=== PATIENT | male | born 1950 | race Caucasian/White ===

== ENCOUNTER 2016-12-02 07:05 | Outpatient (CLI) | payer BC, MEDICARE ==
--- NOTE | 2016-12-02 09:35 | ULT ---
ULTRASOUND RETROPERITONEUM LIMTED: (ABDOMINAL AORTA) HISTORY: 66-year-old male for abdominal aortic aneurysm screening examination. FINDINGS: The caliber of the entire abdominal aorta is normal. IMPRESSION: No abdominal aortic aneurysm. lyn POS: [email or web address]
== END 2016-12-02 07:06 | disposition home or self-care (01) ==
LOC: NAV ULT 07:05
PROVIDERS: ATTEND Family Medicine
DX: Z13.6 Encounter for screening for cardiovascular disorders (principal)
CPT/HCPCS: 76775

== ENCOUNTER 2020-01-08 15:16 | Emergency (ER) | payer BC, MEDICARE ==
[2020-01-08] MEDS ORDERED: Acetaminophen 500 MG TAB ONE (15:57)
--- NOTE | 2020-01-08 17:36 | RAD ---
PA AND LATERAL CHEST: 01/08/20 INDICATION: Cough. COMPARISON: None. FINDINGS: No air space consolidation is evident. Heart size is normal. No pleural effusion is evident. No acute osseous abnormality is evident. There is surgical suture line seen involving the anterior abdominal wall on the lateral projection. No acute osseous abnormality is evident. IMPRESSION: No acute abnormality. POS: [facility]
[2020-01-09 02:46] LABS: SARS-CoV-2 MS2 Positive; SARS-CoV-2 N Gene Positive; SARS-CoV-2 S Gene Positive; SARS-CoV-2 by NAA DETECTED (NotDetected); SARS-CoV-2 orf1ab Positive
== END 2020-01-08 17:41 | disposition home or self-care (01) ==
LOC: NAV ERS 15:16
DX: U07.1 COVID-19 (principal); J06.9 Acute upper respiratory infection, unspecified; J45.909 Unspecified asthma, uncomplicated
CPT/HCPCS: 71046; 87635; 87804; U0003

== ENCOUNTER 2021-08-04 11:58 | Outpatient (CLI) | payer BC | END 2021-08-04 11:59 | disposition home or self-care (01) | LOC: NAV RAD 11:58 | PROVIDERS: ATTEND Nurse Practitioner Family | DX: Z01.818 Encounter for other preprocedural examination (principal) | CPT/HCPCS: 71046 ==